=== PATIENT | male | born 1960 | race Asian ===

== ENCOUNTER 2023-12-26 14:44 | Outpatient (CLI) | payer MEDICAID, OTHER | END 2023-12-26 23:59 | disposition critical access hospital (66) | LOC: EMS 14:44 | DX: R10.11 Right upper quadrant pain (principal); R23.1 Pallor | CPT/HCPCS: A0425; A0427; A0999 ==

== ENCOUNTER 2023-12-26 15:14 | Emergency (ER) | payer MEDICAID, OTHER ==
[2023-12-26 15:42] LABS: BASOPHILS # (AUTO) 0.1 10^3/uL (0.0-0.1); BASOPHILS % (AUTO) 0.6 %; EOSINOPHILS # (AUTO) 0.4 10^3/uL (0.0-0.7); EOSINOPHILS % (AUTO) 2.2 %; HCT - HEMATOCRIT 43.9 % (42.0-52.0); HGB - HEMOGLOBIN 14.2 g/dL (14.0-18.0); LYMPHOCYTES # (AUTO) 3.1 10^3/uL (1.5-3.5); LYMPHOCYTES % (AUTO) 17.8 %; MEAN CORPUSCULAR HGB CONC 32.3 g/dL (32.0-36.0); MEAN CORPUSCULAR VOLUME 92.6 fL (80.0-94.0); MONOCYTES # (AUTO) 0.9 10^3/uL (0.0-1.0); MONOCYTES % (AUTO) 5.2 %; NEUTROPHILS # (AUTO) 12.6 10^3/uL (1.5-6.6); NEUTROPHILS % (AUTO) 72.3 %; PLT - PLATELET COUNT 248 10^3/uL (130-450); RED BLOOD COUNT 4.74 10^6/uL (4.70-6.10); RED CELL DISTRIBUTION WIDTH 12.9 % (12.0-15.0); WHITE BLOOD COUNT 17.5 x10^3/uL (4.8-10.8)
--- NOTE | 2023-12-26 15:49 | ED Physician Documentation ---
PD HPI ABD PAIN - Stated complaint Stated Complaint: ABD PX - Chief complaint Chief Complaint: Abd Pain - Additional information Additional information: 62-year-old male Cantonese speaking presents emergency department For 3 days of abdominal pain and discomfort. Patient says he does not take any medications for anything and has been never been diagnosed with anything from right doctor in the past. This information was gathered with family who speaks Moroccan and Cantonese as well as a equine internship service at bedside. Patient states that originally started and has been epigastric pain that is radiating now to his right lower quadrant pain and throughout his entire left and right upper mid epigastric area. Unsure if he has had any fevers or chills no diarrhea he does endorse some nausea no vomiting. PD PAST MEDICAL HISTORY - Past Medical History Past Medical History: No - Past Surgical History Past Surgical History: No - Present Medications Home Medications: Ambulatory Orders Medication Instructions Recorded Confirmed No Known Home Medications 12/26/23 12/26/23 - Allergies Allergies/Adverse Reactions: Allergies Allergy/AdvReac Type Severity Reaction Status Date / Time No Known Drug Allergies Allergy Verified 12/26/23 15:17 - Social History Does the pt smoke?: No Smoking Status: Never smoker PD ED PE NORMAL - Vitals Vital signs reviewed: Yes - General General: Alert and oriented X 3, Other (Ill-appearing) - HEENT HEENT: Atraumatic - Neck Neck: Supple, no meningeal sign - Cardiac Cardiac: RRR - Respiratory Respiratory: No respiratory distress, Clear bilaterally - Abdomen Abdomen: Other (Peritonitis, guarding of the abdomen, severe tenderness to the midepigastric right upper quadrant left upper quadrant.) - Back Back: No CVA TTP - Derm Derm: Normal color, Warm and dry, No rash Results - Vitals Vitals: Vital Signs - 24 hr 12/26/23 12/26/23 12/26/23 15:14 17:38 20:10 Temperature 36.3 C L 36.8 C Heart Rate 80 83 94 Respiratory 18 18 16 Rate Blood Pressure 162/114 H 117/85 H 155/95 H O2 Saturation 100 100 93 Oxygen O2 Source Room air - Labs Labs: Laboratory Tests 12/26/23 12/26/23 12/26/23 15:38 15:38 17:57 WBC 17.5 H RBC 4.74 Hgb 14.2 Hct 43.9 MCV 92.6 MCH 30.0 MCHC 32.3 RDW 12.9 Plt Count 248 MPV 10.0 Neut # (Auto) 12.6 H Lymph # (Auto) 3.1 [place] # (Auto) 0.9 Eos # (Auto) 0.4 Baso # (Auto) 0.1 Absolute Nucleated RBC 0.00 Nucleated RBC % 0.0 Sodium 138 Potassium 3.4 L Chloride 103 Carbon Dioxide 25 Anion Gap 10.0 BUN 14 Creatinine 0.7 Estimated GFR (MDRD) 114 Glucose 193 H Lactic Acid 2.7 H Calcium 9.7 Total Bilirubin 0.7 AST 25 ALT 32 Alkaline Phosphatase 54 Total Protein 7.7 Albumin 4.5 Globulin 3.2 Albumin/Globulin Ratio 1.4 Lipase 19 Nasal Influenza B PCR Nasal Influenza A PCR Nasal RSV (PCR) Nasal SARS-CoV-2 (PCR) 12/26/23 18:48 WBC RBC Hgb Hct MCV MCH MCHC RDW Plt Count MPV Neut # (Auto) Lymph # (Auto) [place] # (Auto) Eos # (Auto) Baso # (Auto) Absolute Nucleated RBC Nucleated RBC % Sodium Potassium Chloride Carbon Dioxide Anion Gap BUN Creatinine Estimated GFR (MDRD) Glucose Lactic Acid Calcium Total Bilirubin AST ALT Alkaline Phosphatase Total Protein Albumin Globulin Albumin/Globulin Ratio Lipase Nasal Influenza B PCR NOT DETECTED Nasal Influenza A PCR NOT DETECTED Nasal RSV (PCR) NOT DETECTED Nasal SARS-CoV-2 (PCR) NOT DETECTED - Rads (name of study) Abdomen pelvis CT with Relevant Findings:: Final report received, EMP independent interpretation of test, Other (Focal defect within the superior gastric antral wall likely representing perforated ulcer small pneumoperitoneum present in upper abdomen, fat stranding adjacent to the colon in the hepatic flexure) PD Medical Decision Making - ED course ED course: 62-year-old male presents emergency department for severe midepigastric pain. Abdominal exam does show that patient does have peritonitis labs are complete for further evaluation he does have significant leukocytosis, WBC 17.5, lactic acid also elevated at 2.7 no anemia glucose is 193 respiratory swab is negative. CT abdomen pelvis was complete for further evaluation with contrast and reveals focal defect within the superior gastric antral wall likely due to a perforated ulcer as well as small pneumoperitoneum in the upper abdomen with fat stranding seen in the colon and the hepatic flexure. 2 sets of blood cultures were complete for further evaluation and patient was started on Flagyl and Rocephin. I spoke with surgeon Dr. Cornell, resident of [facility] with the surgical services who says that patient wanted greatly benefit from being transferred to [facility] and they would be willing to see the patient we are now waiting on [facility] to admit the patient. Patient as well as family are agreeable to transfer. Patient's pain has been very difficult to get control of here in the emergency department he has been requiring multiple doses of IV Dilaudid 0.5 to 1 mg for pain control. Unfortunately I was unable to speak with [facility] report given to Dr. Hinojosa who is further managing the patient care until we are able to get patient over to [facility]. Departure - Departure Disposition: [facility] DC/Xfer Clinical Impression: Gastric ulcer with perforation, Leukocytosis Forms: PCP List
[2023-12-26] MEDS: HYDROmorphone 0.5 MG/0.5 ML SYRINGE IVP STA ×4 (15:56→22:42)
[2023-12-26 15:58] LABS: ALBUMIN 4.5 g/dL (3.2-5.5); ALBUMIN/GLOBULIN RATIO 1.4 (1.0-2.2); BILIRUBIN,TOTAL 0.7 mg/dL (0.2-1.0); CALCIUM 9.7 mg/dL (8.5-10.3); CREATININE 0.7 mg/dL (0.6-1.3); POTASSIUM 3.4 mmol/L (3.5-4.5); TOTAL PROTEIN 7.7 g/dL (6.4-8.9)
[2023-12-26] MEDS ORDERED: iohexoL-300 100 ML VIAL ONE (16:07)
[2023-12-26] MEDS: iohexoL-300 100 ML VIAL IVP ONE (16:31)
--- NOTE | 2023-12-26 17:38 | CT Report ---
PROCEDURE: Abdomen/Pelvis W INDICATIONS: Rt abd pain, mid epigastric pain CONTRAST: 100ml omni 300 TECHNIQUE: After the administration of intravenous contrast, a CT scan of the abdomen and pelvis was performed. Images were recorded and evaluated at appropriate window settings. Reformats: coronal and sagittal. F or radiation dose reduction, the following was used: automated exposure control, adjustment of mA and /or kV according to patient size. COMPARISON: None. FINDINGS: Image quality: Diagnostic. Lower chest: Distal esophagus is patulous and fluid-filled Liver: No solid mass. Gallbladder: No radiopaque stones or wall thickening. Biliary tree: No intrahepatic or extrahepatic dilation, accounting for age. Spleen: No splenomegaly. Pancreas: No pancreatic ductal dilation. Adrenals: No adrenal nodule. Kidneys and ureters: No hydronephrosis. No renal cystic lesion which requires follow up. No solid mas s. Stomach, bowel and peritoneum: There appears to be a focal defect within the gastric antral wall, lik timo representing perforated ulcer, best seen on coronal image 47. There is adjacent wall thickening a nd inflammation. Small pneumoperitoneum is seen within the upper abdomen.. No abnormal wall thickenin g. . Fat stranding is seen adjacent to the colonic hepatic flexure without significant wall thickenin g. Normal appendix. Lymph nodes: No central or retroperitoneal adenopathy. Vessels: No infrarenal aortic aneurysm. Atherosclerotic vascular calcifications. Patent portal vein. PELVIS Reproductive organs: Unremarkable. Bladder: No abnormal wall thickening, accounting for underdistention. Pelvic lymph nodes: No pelvic adenopathy by size criteria. Bones: No aggressive osseous abnormality. Other: No significant ventral or inguinal hernia. IMPRESSION: 1.Focal defect within the superior gastric antral wall, likely representing a perforated ulcer. Small pneumoperitoneum is present in the upper abdomen. 2.Fat stranding is seen adjacent to the colon in the hepatic flexure. No definite wall thickening or other abnormality seen. Recommend colonoscopy to exclude underlying neoplasm. Several unsuccessful attempts were made to contact the [facility] emergency Department. Report wa s signed and added to a work list to be communicated to the ordering provider. Reviewed by: Jhon Herrera MD on 12/26/2023 4:36 PM FELIZ Approved by: Jhon Herrera MD on 12/26/2023 4:36 PM AKALEXIA Station ID: [id number]
[2023-12-26] MEDS: metroNIDAZOLE 500 MG/100 ML 500 MG/100 ML BAG IV ONE (17:50)
[2023-12-26] MEDS: cefTRIAXone 1 GM in SODIUM CHLORIDE 0.9% MINIBAG 100 ML IV STA (17:51)
[2023-12-26] MEDS: HYDROmorphone 1 MG/ML CARPUJECT IVP STA ×2 (17:53→18:59)
[2023-12-26 20:00] LABS: INFLUENZA A- RESP PCR PANEL NOT DETECTED; INFLUENZA B - RESP PCR PANEL NOT DETECTED; RSV- RESP PCR PANEL NOT DETECTED; SARS-CoV-2 -RESP PCR PANEL NOT DETECTED
[2023-12-26] MEDS: SODIUM CHLORIDE 0.9% 1,000 ML IV ONE (21:39)
[2023-12-27 00:45] VITALS: O2SAT 95
[2023-12-27 01:07] VITALS: BP 148/78
--- NOTE | 2023-12-27 06:32 | ED Physician Documentation ---
ED Addendum - Addendum Addendum: 12/27/23 06:31 Patient endorsed to me by REFERRAL MANAGEMENT LIAISON John awaiting transfer to [facility]. Hospitalist never did call but they did give us a bed assignment. Patient was transferred without incident. Disposition transfer to [facility] Condition stable Impression 1. Gastric ulcer perforation
== END 2023-12-27 01:03 | disposition short-term general hospital (02) ==
LOC: ED 15:14
DX: K25.5 Chronic or unspecified gastric ulcer with perforation (principal); K65.9 Peritonitis, unspecified; K66.8 Other specified disorders of peritoneum
CPT/HCPCS: 36415; 74177; 80053; 83605; 83690; 85025; 87040; 87637; 96361; 96365; 96368; 96375; 96376; 99285; J1170; Q9967; 81001; 81003; 87086; 87635